=== PATIENT | female | born 1985 | race Caucasian/White ===

== ENCOUNTER → 2016-11-18 | Outpatient (CLI) | payer OTHER ==
--- NOTE | 2016-11-18 16:43 | RAD ---
Indication: Right shoulder mass. Technique: Ultrasound of the area of concern was performed. Findings: Oval-shaped 3.1 x 2.6 x 1.2 cm mass is noted at the area of concern without color flow and with increased through transmission. This is slightly hyperechoic. Imaging appearance is most suggestive of lipoma. Impression: Probable lipoma at the area of concern.
== END | disposition home or self-care (01) ==
LOC: US 16:27
PROVIDERS: ATTEND Physician Assistant
DX: R22.9 Localized swelling, mass and lump, unspecified (principal); R22.31 Localized swelling, mass and lump, right upper limb
CPT/HCPCS: 76881

== ENCOUNTER → 2021-02-13 | Outpatient (CLI) | payer BC ==
--- NOTE | 2021-02-13 15:20 | RAD ---
EXAM: 1. BILATERAL DIGITAL 3-D DIAGNOSTIC MAMMOGRAPHY. 2. BILATERAL BREAST ULTRASOUND. HISTORY: Right breast palpable mass and pain with nipple retraction. TECHNIQUE: Bilateral full field digital images were obtained in CC and MLO projections with tomosynth esis. Computer-aided detection was applied. Sonography of both breasts was also performed. COMPARISON: None available. This is interpreted as a baseline study. COMPOSITION: D. The breasts are extremely dense, which lowers the sensitivity of mammography. FINDINGS: A skin marker is placed at the site of palpable concern inferomedially on the right. Underl kylee this, there is an obscured mass on tomosynthesis measuring approximately 2.7 x 3.3 cm. On today' s sonography, this corresponds with a complicated cystic mass at the 3:00 retroareolar position conta ining echogenic debris measuring 3.2 x 2.1 x 3.0 cm. There is flow along its periphery but not within it. It communicates with the ducts that extend laterally. Cyst fluid and debris can be expressed int o the ducts with pressure. A clear solid perfused component is not identifiable. Right axillary lymph nodes are prominent mammographically. One measuring 2.0 x 0.9 cm has a thickened cortex at 6 mm. This is indeterminate. On the left, there is an obscured retroareolar mass at mid depth. Sonographically, this corresponds w ith a cyst containing thin septations measuring 1.4 x 0.7 x 1.0 cm. This is at the retroareolar 9:00 position. Another small benign cyst measures 5 x 3 mm at the 10:00 retroareolar position. A few scatt ered calcifications are benign. There is no suspicious finding on the left. BI-RADS CATEGORY 4: Suspicious Abnormality--Biopsy is suggested. RECOMMENDATION: 1. A complicated 3.2 cm cystic mass at the 3:00 retroareolar position contains debris and communicate s with the ductal system. This may represent a subacute abscess or a galactocele, but is indeterminat e. Ultrasound-guided aspiration and biopsy of the cyst remnant is recommended to establish the diagno sis. 2. Thickened right axillary lymph nodes may be reactive but are also indeterminate. Biopsy is recomme nded under ultrasound guidance. Electronically signed by: Caroline Bennett MD (02/13/2021 3:18 PM) [id number]
== END ==
LOC: MAMMO 13:48
PROVIDERS: ATTEND Physician Assistant
DX: N60.02 Solitary cyst of left breast (principal); N63.14 Unspecified lump in the right breast, lower inner quadrant
CPT/HCPCS: 77066; 76641-50

== ENCOUNTER 2021-06-11 12:33 | Day surgery (SDC) | payer BC ==
[~2021-06-11] VITALS: Ht 157.5 cm; Wt 52.2 kg
[~2021-06-11 12:33] MED LIST: BACITRACIN TOPICAL OINT PACKET. TP ONE; BUPIVACAINE MPF 0.5% 30 ML VIAL. ONE; DIPH25CA58 PO; HYDR25TA PO; HYDROmorphone 2 MG/ML VIAL IVP PRN; IV RINGERS,LACTATED 1000ML 1,000 ML IV SCH; LAMO100T8 PO; MORPHINE SULFATE 2 MG/ML INJ. IVP PRN; PROCHLORPERAZINE 10 MG/2 ML VIAL. IVP PRN; ceFAZolin SODIUM IV Push 1 GM VIAL. IVP PRN; fentaNYL PF VIAL 100 MCG/2 ML VIAL IVP PRN
[2021-06-11] MEDS ORDERED: DEXAMETHASONE SOD PHOS 4 MG/ML VIAL ONE ×2 (12:46→14:07)
[2021-06-11] MEDS ORDERED: LIDOCAINE 2% PF 5 ML VIAL. ONE ×2 (12:46→14:07)
[2021-06-11] MEDS ORDERED: ONDANSETRON PF 4 MG/2 ML VIAL. ONE ×2 (12:46→14:07)
[2021-06-11] MEDS ORDERED: PROPOFOL 10 MG/ML (20ML) VIAL. IV ONE ×3 (12:46→14:58)
[2021-06-11] MEDS ORDERED: MIDAZOLAM HCL/PF 2 MG/2 ML VIAL. ONE (14:08)
[2021-06-11] MEDS ORDERED: fentaNYL PF VIAL 100 MCG/2 ML VIAL ONE (14:08)
[2021-06-11] MEDS ORDERED: IBUP-1060 PO (15:59)
[2021-06-11 16:01] VITALS: BP 130/68
[2021-06-11] MEDS ORDERED: ACET325T9 PO (16:03)
--- NOTE | 2021-06-11 16:44 | PDOC4 ---
OPERATIVE NOTE Date: Date: Jun 11, 2021 Pre-Op Diagnosis: Right dorsal wrist ganglion cyst Post-Op Diagnosis: Same Procedure Performed: Excision of right dorsal wrist ganglion cyst CPT 07939 Incision time 3:06PM - 3:32 PM Surgeon: Lilia Langford MD Anesthesia Type: General LMA anesthesia Blood Loss: 5 cc Specimans Obtained: Cystic sac of right dorsal wrist ganglion cyst Findings: See below Complications: None Operative Note: Indication This is a 36-year-old female who presented with significant pain and functional impairment due to a right dorsal wrist ganglion cyst. We discussed the risks of bleeding, infection, recurrence, stiffness, scar formation, injury to surrounding vessels, nerves, or tendons. The patient understands the benefits, risks, and alternatives associated with the procedure and desires to proceed. Procedure Informed consent was taken in the perioperative holding area and the patient was brought to the operating room where an initial timeout was performed to verify the correct patient and the correct procedure.General LMA anesthesia was administered followed by local anesthesia with 0.25% plain bupivacaine. A tourniquet was applied to the upper arm and the extremity was prepped and draped in the usual sterile fashion. The cyst was identified by inspecting and palpating the dorsum of the wrist. Tourniquet pressure was applied with exsanguination and an axial incision was made directly over cyst with a #15 scalpel. Blunt dissection was carried down through the subcutaneous tissue past the antebrachial fascia, down to and around the cyst wall. Care was taken to identify and preserve sensory branch nerves. The cyst was ruptured to improve visibility. While holding the sac dissection proceeded down to the level of the extensor retinaculum with the exit point of the cystic stalk was identified. The extensor retinaculum was opened partially to facilitate dissection of the cyst.I teased the stalk circumferentially away from the extensor retinaculum until the connection of the cyst and its joint space was identified. The cyst was coagulated at the base of the stalk with bipolar cautery. The cyst and its synovial attachment were removed and sent to pathology for analysis. The wound was copiously irrigated with saline. The tourniquet pressure was released and the total tourniquet time was noted. Hemostasis was achieved with bipolar cautery. Closure was performed with 5-0 Vicryl in the deep dermal layer followed by 4-0 nylon interrupted horizontal mattress sutures to close the skin. A bandage was applied to the surgical site. The patient was transferred to the PACU in stable condition. There were no immediate complications. LILIA LANGFORD MD Jun 11, 2021 16:44
--- NOTE | 2021-06-14 15:14 | PATHOLOGY ---
[facility] Accession Number: [id number] . 01 Material submitted: . wrist - EXCISION OF RIGHT DORSAL WRIST GANGLION CYST SAC. Modifiers: right, dorsal . 01 Clinical history: . GANGLION CYST OF THE DORS... . 02 Diagnosis: Segment of fibrous tissue, right dorsal wrist cyst excision: - Consistent with ganglion cyst, with focal coagulation artifact. (JPM:marcelino; 06/14/2021) MBR 06/14/2021 1148 Local . 02 Electronically signed: . Tanner Au MD, Pathologist NPI- [id number] . 01 Gross description: . The specimen is received in formalin, labeled "Houts, Jazmín, ganglion cyst sac". Received is a single segment of pale small tissue measuring 0.5 cm in greatest dimensions. The specimen is entirely submitted in cassette A1. ([facility]; 06/13/2021) NRI/NRI 06/13/2021 2124 Local . 02 Pathologist provided ICD-10: M67.431 . 02 CPT . 972848 Specimen Comment: A courtesy copy of this report has been sent to [phone], [phone] Specimen Comment: [id number] Specimen Comment: Report sent to / DR MCCLELLAN Performed at: 01 [facility] [address], [place] [id number] MD Brandt Ji MD Phone: [phone] Performed at: 02 [facility] [address], [place] [id number] MD Tanner Au MD Phone: [phone]
== END 2021-06-11 16:20 | disposition home or self-care (01) ==
LOC: SURG 12:33
PROVIDERS: ATTEND Plastic Surgery
DX: M67.431 Ganglion, right wrist (principal); F41.9 Anxiety disorder, unspecified; Z87.891 Personal history of nicotine dependence; Z79.899 Other long term (current) drug therapy; Z98.890 Other specified postprocedural states; Z88.2 Allergy status to sulfonamides; Z91.040 Latex allergy status; Z88.8 Allergy status to other drugs, medicaments and biological substances
CPT/HCPCS: 25111; 81025; A4930; A6402; J0690; J1100; J2250; J2405; J2704; J3010; J3490; 88304; A4657; A6452

== ENCOUNTER 2021-07-11 19:43 | Emergency (ER) | payer BC ==
[~2021-07-11] VITALS: Ht 160 cm; Wt 55.4 kg
[~2021-07-11 19:43] MED LIST changes: +ACET325T9 PO; -BACITRACIN TOPICAL OINT PACKET. TP ONE; -BUPIVACAINE MPF 0.5% 30 ML VIAL. ONE; -HYDROmorphone 2 MG/ML VIAL IVP PRN; +IBUP-1060 PO; -IV RINGERS,LACTATED 1000ML 1,000 ML IV SCH; -MORPHINE SULFATE 2 MG/ML INJ. IVP PRN; -PROCHLORPERAZINE 10 MG/2 ML VIAL. IVP PRN; -ceFAZolin SODIUM IV Push 1 GM VIAL. IVP PRN; -fentaNYL PF VIAL 100 MCG/2 ML VIAL IVP PRN
[2021-07-11 19:50] VITALS: BP 118/76
--- NOTE | 2021-07-11 20:18 | RAD ---
Exam: Chest one view INDICATION: Short of air TECHNIQUE: Frontal view of the chest Comparisons: None FINDINGS: The cardiomediastinal silhouette and pulmonary vessels are within normal limits. The lung and pleural spaces are clear. IMPRESSION: No acute cardiopulmonary process. Electronically signed by: Anirudh Mcgill MD (07/11/2021 8:15 PM) DARCY
--- NOTE | 2021-07-11 20:54 | PHYS DOC ---
Past Medical History Past Surgical History: Other Additional Past Surgical Histo: GANGLION CYST General Adult EDM: Chief Complaint: ANXIETY/PANIC ATTACK HPI: HPI: Patient is a 36 year old female who presents the ED today to be evaluated for shortness of breath with anxiety. Patient states she has had cold symptoms for 3 days. She states she is under a lot of stress at home. She states her is not willing to help him with home chores and care of their 6 year old son. She states today the contacted her boss and gave her information about patient that upset her. Patient states the situation escalated the issues going on at home stress and made her SOA. She states she has Xanax at home but did not want to take it because she is already taking NyQuil. Patient denies any suicidal ideations though she states she has had suicidal ideations before. Denies any homicidal ideations. Denies any chest pain. Denies any fever. Denies being on any hormones. She states she is mostly stressed out and hence the reason for her shortness of breath. Review of Systems: Review of Systems: Constitutional: Denies fever or chills. [] Eyes: Denies change in visual acuity. [] HENT: Reports nasal congestion, denies sore throat. [] Respiratory: Reports shortness of breath, denies coughing Cardiovascular: Denies chest pain or edema. [] GI: Denies abdominal pain, nausea, vomiting, bloody stools or diarrhea. [] : Denies dysuria. [] Musculoskeletal: Denies back pain or joint pain. [] Integument: Denies rash. [] Neurologic: Denies headache, focal weakness or sensory changes. [] Psychiatric: Reports anxiety and home stress Heart Score: C/O Chest Pain: N/A Risk Factors: Risk Factors: DM, Current or recent (<one month) smoker, HTN, HLP, family history of CAD, obesity. Risk Scores: Score 0 - 3: 2.5% MACE over next 6 weeks - Discharge Home Score 4 - 6: 20.3% MACE over next 6 weeks - Admit for Clinical Observation Score 7 - 10: 72.7% MACE over next 6 weeks - Early Invasive Strategies Allergies: Allergies: Allergies Coded Allergies Type Severity Reaction Last Updated Verified Sulfa (Sulfonamide Antibiotics) Allergy Intermediate Hives 06/11/21 Yes ketorolac Allergy Intermediate Hives 06/11/21 Yes cyclobenzaprine Adverse Reaction Intermediate 06/11/21 Yes latex Adverse Reaction Intermediate Rash 06/11/21 Yes Physical Exam: PE: Constitutional: Well developed, well nourished, no acute distress, non-toxic appearance. [] HENT: Normocephalic, atraumatic, bilateral external ears normal, oropharynx moist, no oral exudates, nose normal. [] Eyes: PERRLA, EOMI, conjunctiva normal, no discharge. [] Neck: Normal range of motion, no tenderness, supple, no stridor. [] Cardiovascular:Heart rate regular rhythm, no murmur [] Lungs & Thorax: Bilateral breath sounds clear to auscultation [] Abdomen: Bowel sounds normal, soft, no tenderness, no masses, no pulsatile masses. [] Skin: Warm, dry, no erythema, no rash. [] Back: No tenderness, no CVA tenderness. [] Extremities: No tenderness, no cyanosis, no clubbing, ROM intact, no edema. [] Neurologic: Alert and oriented X 3, normal motor function, normal sensory fu nction, no focal deficits noted. [] Psychologic: Very tearful. Crying. Current Patient Data: Vital Signs: Vital Signs Date Time Temp Pulse Resp B/P (MAP) Pulse Ox O2 Delivery O2 Flow Rate FiO2 07/11/21 19:50 97.9 83 18 118/76 (90) 99 Room Air 97.9 EKG: EK Interpreted by Dr. hawley sinus rhythm HR 75 no STEMI Radiology/Procedures: Radiology/Procedures: []PROCEDURE: CHEST AP ONLY Exam: Chest one view INDICATION: Short of air TECHNIQUE: Frontal view of the chest Comparisons: None FINDINGS: The cardiomediastinal silhouette and pulmonary vessels are within normal limits. The lung and pleural spaces are clear. IMPRESSION: No acute cardiopulmonary process. Electronically signed by: Anirudh Elmore MD (07/11/2021 8:15 PM) [facility] DICTATED and SIGNED BY: ANIRUDH ELMORE MD DATE: 07/11/[id number] 0 Course & Med Decision Making: Course & Med Decision Making Pertinent Labs and Imaging studies reviewed. (See chart for details) This is a 36-year-old female patient with history of anxiety presenting today for shortness of breath and anxiety. Patient states she and her are not getting along. The is not willing to help her with the care for 6-year-old son as well as home chores. She states today the situation escalated, she got short of breath and came to the ED by EMS, O2 sats are 99% on room air. Chest x-ray is negative. PERC score is 0. Tarsha from the pat team talked to patient. Resources were provided. She was discharged home Shania Disclaimer: Shania Disclaimer: This electronic medical record was generated, in whole or in part, using a voice recognition dictation system. PERC Rule for PE PERC Rule for PE Response (Comments) Value Age > 50: No 0 HR > 100: No 0 Sa02 on room air <95%: No 0 Unilateral leg swelling: No 0 Hemoptysis: No 0 Recent surgery or trauma: No 0 Prior PE or DVT: No 0 Hormone use: No 0 Total 0 Departure Departure Impression: Primary Impression: Anxiety Additional Impressions: Shortness of breath URI (upper respiratory infection) Qualified Codes: J06.9 - Acute upper respiratory infection, unspecified Disposition: HOME / SELF CARE / HOMELESS Condition: STABLE Referrals: TOBIN MCCLELLAN PA-C (PCP) follow up next week Patient Instructions: Anxiety and Panic Attacks, Shortness of Breath, [id number] Additional Instructions: You were evaluated in the emergency room for anxiety with shortness of breath. Please follow-up with resources provided by Tarsha from the PAT team. Continue using [id number] medicines for your cold symptoms. Come back to the ED at any point symptoms worsen SHAUN GAITAN APRN Jul 11, 2021 20:54
[2021-07-11] MEDS ORDERED: ALPRAZolam 0.5 MG TABLET PO ONE (22:00)
== END 2021-07-11 21:55 | disposition home or self-care (01) ==
LOC: ER 19:43
DX: J06.9 Acute upper respiratory infection, unspecified (principal); R06.02 Shortness of breath; F41.9 Anxiety disorder, unspecified; Z88.2 Allergy status to sulfonamides; Z91.040 Latex allergy status; Z88.6 Allergy status to analgesic agent; Z88.8 Allergy status to other drugs, medicaments and biological substances
CPT/HCPCS: 71045; 99283

== ENCOUNTER → 2021-10-19 | Outpatient (CLI) | payer BC ==
--- NOTE | 2021-10-19 14:22 | RAD ---
EXAM: Left hand, 3 views. HISTORY: Index finger blunt trauma. COMPARISON: None. FINDINGS: 3 views of the left hand are obtained. There is no fracture, dislocation or subluxation. Th ere is no foreign body. IMPRESSION: No acute osseous finding. Electronically signed by: Micki Condon MD (10/19/2021 2:19 PM) [id number]
== END ==
LOC: RAD 13:49
PROVIDERS: ATTEND Physician Assistant Medical
DX: S67.191A Crushing injury of left index finger, initial encounter (principal); X58.XXXA Exposure to other specified factors, initial encounter; Y93.89 Activity, other specified; Y92.89 Other specified places as the place of occurrence of the external cause; Y99.8 Other external cause status
CPT/HCPCS: 73130